=== PATIENT | female | born 1980 | race Caucasian/White ===

== ENCOUNTER 2019-06-21 12:49 | Emergency (ER) | payer OTHER ==
[~2019-06-21] VITALS: Ht 157.5 cm; Wt 72.2 kg
[2019-06-21 12:57] VITALS: BP 100/54; PULSE 89; RESP 18; Ht 157.5 cm; Wt 72.2 kg
== END 2019-06-21 15:45 | disposition home or self-care (01) ==
LOC: FTE 12:49
DX: O20.9 Hemorrhage in early pregnancy, unspecified (principal); Z3A.14 14 weeks gestation of pregnancy
CPT/HCPCS: 36415; 76801; 81001; 84702; 85025; 86900; 86901; Z7502